=== PATIENT | female | born 1955 | race Caucasian/White ===

== ENCOUNTER 2018-10-12 11:17 | Observation (INO) ==
[2018-10-12] MEDS ORDERED: Acetaminophen 500 MG Tablet PO PRN (15:42)
[2018-10-12] MEDS ORDERED: Morphine Inj 4 MG/ML Vial IV.PUSH PRN (15:42)
[2018-10-12] MEDS ORDERED: Temazepam 15 MG Capsule PO PRN (15:42)
[2018-10-12] MEDS ORDERED: amLODIPine 5 MG Tablet PO SCH (15:45)
[2018-10-12 20:27] LABS: Creatine Kinase 84 U/L (26-192)
[2018-10-13] MEDS ORDERED: Atropine Inj 1 MG/ML Vial IV.PUSH PRN (02:39)
[2018-10-13] MEDS: Aspirin 325 MG Tablet PO SCH ×2 (07:51→10:19)
[2018-10-13 08:12] VITALS: BP 121/58; RESP 12; TEMP 97.3; O2SAT 96
--- NOTE | 2018-10-13 08:22 | P.HP ---
History of Present Illness Primary Care Physician: Alexandro Chauhan MD Chief Complaint: Chest pain History of Present Illness: This is a 63-year-old female patient with a known medical history of dyslipidemia who presented to the ED with complaints of chest pain. Patient states that the chest pain started 2 days ago, initially occurred at rest was characteristically pressure-like in nature, occurred in her mid chest and radiated to her left shoulder, was rated a 7 out of 10 at its worst on pain scale lasting roughly 3-5 minutes is intermittent in nature and goes away on its own without any known aggravating or alleviating factors. Patient denies any associated sweating, nausea, vomiting or shortness of breath. Patient states she has never had this type of pain before. Denies prior stress test. Denies any history of diabetes or hypertension. Does states she has high cholesterol although does not take anything for this secondary to muscle aches with statin. Follows closely with PCP. Does take an aspirin a day. Does have a strong family history of CAD. Denies any smoking history. - Diagnosis (1) Chest pain Review of Systems All other systems reviewed negative except as stated in HPI PMFSH - History History Provided By: Patient - Medical History Medical History: Medical History (Last Reviewed 10/13/18 @ 08:20 by Diana Jefferson) H/O: hysterectomy High cholesterol - Surgical History Surgical History: Surgical History (Last Updated 10/13/18 @ 08:35 by Diana Jefferson) History of cholecystectomy History of appendectomy - Family History Family History: Family History (Last Updated 10/13/18 @ 08:20 by Diana Jefferson) Other Cardiovascular disease - Social History I have reviewed the patient's Social History: Yes - Tobacco History Second Hand Smoke Exposure: No Smoking Status: Never smoker - Alcohol History How Often Do You Have a Drink Containing Alcohol: Never - Substance Use History Substance History: No History of Abuse Medications and Allergies Active Medications: Active Medications Acetaminophen (Tylenol) 500 mg PO Q4H PRN PRN Reason: HEADACHE Hydrocodone Bitart/Acetaminophen (Dudley 7.5/325) 1 tab PO Q4H PRN PRN Reason: PAIN SCALE 1 TO 7 Aspirin (Aspirin) 325 mg PO DAILY VINCENZO Last Admin: 10/13/18 07:51 Dose: 325 mg Atropine Sulfate (Atropine Inj) 0.5 mg IV.PUSH Q5M PRN PRN Reason: HR <35 or symp. bradycardia Enalaprilat (Vasotec Inj) 1.25 mg IV.PUSH Q6H PRN PRN Reason: SBP>160, DBP>90 Morphine Sulfate (Morphine Inj) 2 mg IV.PUSH Q4H PRN PRN Reason: PAIN SCALE 8 TO 10 Nitroglycerin (Nitrostat Sl) 0.4 mg SL Q5M PRN PRN Reason: CHEST PAIN Ondansetron HCl (Zofran Inj) 4 mg IV.PUSH Q6H PRN PRN Reason: NAUSEA Sodium Chloride (Ns Flush) 2 ml IV.FLUSH BID VINCENZO Last Admin: 10/13/18 07:51 Dose: 2 ml Sodium Chloride (Ns Flush) 2 ml IV.FLUSH PRN PRN PRN Reason: FLUSH AFTER USING IV ACCESS Allergies Allergy/AdvReac Type Severity Reaction Status Date / Time No Known Allergies Allergy Verified 10/12/18 11:29 Home Medications Medication Instructions Recorded Confirmed Type aspirin 81 mg PO DAILY 10/12/18 10/12/18 History Exam Vital signs: Vital Signs 10/12/18 18:59 10/12/18 20:00 10/13/18 00:00 Temperature 97.2 F L 97.0 F L Pulse Rate 52 L 51 L 47 L Respiratory Rate 18 18 Blood Pressure 103/55 L 116/55 L Pulse Oximetry 96 96 10/13/18 04:00 10/13/18 08:00 Temperature 95.5 F L 97.3 F L Pulse Rate 52 L 54 L Respiratory Rate 18 12 Blood Pressure 118/67 121/58 L Pulse Oximetry 95 96 Intake & Output 10/12/18 10/13/18 10/13/18 18:59 06:59 18:59 Intake Total 0 / 0 Output Total 300 / 300 Balance -300 / -300 Weight 95.1 kg 96.6 kg Intake: Oral 0 / 0 Output: Urine 300 / 300 Other: Date of Last Bowel Movement 10/12/18 10/12/18 10/12/18 Weight On Admission 95.1 kg Narrative: GENERAL: Well-developed, well-nourished patient in [facility]. SKIN: Warm and dry. No rash. HEAD: Normocephalic. Atraumatic. EYES: Pupils equal and round. No scleral icterus. No injection or drainage. ENT: No nasal bleeding or discharge. Mucous membranes pink and moist. NECK: Supple. Trachea midline. CARDIOVASCULAR: Regular rate and rhythm. S1, S2 noted. No murmur appreciated. No chest pain to palpation. RESPIRATORY: No accessory muscle use. Clear to auscultation. Breath sounds equal bilaterally. GASTROINTESTINAL: Abdomen soft, non-tender, nondistended. Normoactive bowel sounds x4. MUSCULOSKELETAL: No obvious deformities. Extremities without clubbing, cyanosis , or edema. NEUROLOGICAL: Awake and alert. No obvious cranial nerve deficits. Motor grossly within normal limits. 5/5 muscle strength in bilateral upper and lower extremities. Normal speech. PSYCHIATRIC: Appropriate mood and affect; insight and judgment normal. Results - Labs Labs: Laboratory Results - last 24 hr 10/12/18 19:50 Total Creatine Kinase 84 Troponin I Less than 0.02 L Caprini VTE Risk Assessment Caprini VTE Risk Assessment: Moderate/High Risk (score >= 2) Caprini Risk Assessment Model: Point Value = 1 Point Value = 2 Point Value = 3 Point Value = 5 Age 41-60 Minor surgery BMI > 25 kg/m2 Swollen legs Varicose veins or History of unexplained or recurrent spontaneous Oral contraceptives or hormone replacement Sepsis (< 1 month) Serious lung disease, including pneumonia (< 1 month) Abnormal pulmonary function Acute myocardial infarction Congestive heart failure (< 1 month) History of inflammatory bowel disease Medical patient at bed rest Age 61-74 Arthroscopic surgery Major open surgery (> 45 min) Laparoscopic surgery (> 45 min) Malignancy Confined to bed (> 72 hours) Immobilizing plaster cast Central venous access Age >= 75 History of VTE Family history of VTE Factor V Leiden Prothrombin [id number] Lupus anticoagulant Anticardiolipin antibodies Elevated serum homocysteine Heparin-induced thrombocytopenia Other congenital or acquired thrombophilia Stroke (< 1 month) Elective arthroplasty Hip, pelvis, or leg fracture Acute spinal cord injury (< 1 month) Prophylaxis Regimen: Total Risk Factor Score Risk Level Prophylaxis Regimen 0-1 Low Early ambulation 2 Moderate Order ONE of the following: *Sequential Compression Device (SCD) *Heparin 5000 units SQ BID 3-4 Higher Order ONE of the following medications: *Heparin 5000 units SQ TID *Enoxaparin/Lovenox 40 mg SQ daily (WT < 150 kg, CrCl > 30 mL/min) *Enoxaparin/Lovenox 30 mg SQ daily (WT < 150 kg, CrCl > 10-29 mL/min) *Enoxaparin/Lovenox 30 mg SQ BID (WT < 150 kg, CrCl > 30 mL/min) AND/OR *Sequential Compression Device (SCD) 5 or more Highest Order ONE of the following medications: *Heparin 5000 units SQ TID (Preferred with Epidurals) *Enoxaparin/Lovenox 40 mg SQ daily (WT < 150 kg, CrCl > 30 mL/min) *Enoxaparin/Lovenox 30 mg SQ daily (WT < 150 kg, CrCl > 10-29 mL/min) *Enoxaparin/Lovenox 30 mg SQ BID (WT < 150 kg, CrCl > 30 mL/min) AND *Sequential Compression Device (SCD) Assessment and Plan - Assessment (1) Chest pain Code(s): R07.9 - Chest pain, unspecified Status: Acute - Plan This is a 63-year-old female patient with: Chest pain, atypical -Patient has been admitted to chest pain center for observation. -Serial EKGs and serial troponins in order for ruling out ACS purposes. Troponin trend flat. -EKG reviewed showing sinus bradycardia, no ST changes indicating ischemia. -Chest x-ray reviewed showing no acute cardiopulmonary disease. -D-dimer was mildly elevated in ER, CTA was done which was reviewed and negative for any PE, lungs are clear. -BNP negative. CBC and BMP reviewed, essentially unremarkable. -Patient did present with elevated blood pressures with systolic in the 200s. Was given clonidine BP is now controlled, patient does not have a history of hypertension. Does take an aspirin a day. This has been continued. -Continued on cardiac telemetry, monitor for any arrhythmias. -Chest pain has resolved. -Patient will undergo a cardiac Lexiscan to further rule out any ischemia. -Further hospitalization and treatment plan will depend on nuclear imaging results. -Patient stable at this time and agreeable to plan. Elevated BP -Systolic 200's on presentation, now controlled. -Was given Clonidine in ED. Will continue to monitor trends. -Does not need antihypertensive at this time. Dyslipidemia -Does not take anything for thia at home, has tried statins but has had muscle spasms in the past. PCP managing. DVT Prophylaxis: SCDs/TEDs. Ambulation.
[2018-10-13] MEDS ORDERED: Regadenoson Inj 0.4 MG/5 ML Syringe IV.PUSH ONE (11:23)
--- NOTE | 2018-10-13 12:39 | NM ---
EXAM DATE: 10/13/2018 12:34 PM EST AGE/SEX: 63 years / Female INDICATIONS:Angina. . Mid-chest pain radiating to the left shoulder. CLINICAL DATA: This is the patient's initial encounter. Patient reports that signs and symptoms have been present for 2 days and indicates a pain score of 7/10. MEDICAL/SURGICAL HISTORY: Hypercholesterolemia. Hysterectomy. Appendectomy. Cholecystectomy. COMPARISON: No prior exams available for comparison. DOSE: 8.7 mCi Tc 99m Myoview at rest 27.3 mCi [id number] at stress 0.4 mg Lexiscan STRESS SYMPTOMS: Chest pain and dyspnea. EJECTION FRACTION: 68 % TECHNIQUE: The patient underwent pharmacologic stress with infusion of prescribed dose. Continuous ECG tracing was monitored during stress. Gated SPECT imaging was performed after stress and conventi onal SPECT imaging was performed at rest. The examination was performed on a SPECT/CT scanner, both attenuation and non-corrected datasets were reviewed. FINDINGS: Distribution: The maximum perfused segment at stress is in the anterolateral wall. Perfusion Study: The pattern of perfusion at stress is within normal limits. Gated Study: There are intact wall motion and wall thickening without hypokinetic or dyskinetic segm ents. The ejection fraction is calculated at 68%. RISK CATEGORY: Low (<1% Annual Motality Rate) CONCLUSION: 1. No reversible perfusion defect to indicate stress-induced myocardial ischemia identified. Electronically signed by: Chuckie Lux MD 10/13/2018 12:38 PM EST
[2018-10-13 13:00] VITALS: PULSE 56
--- NOTE | 2018-10-13 16:45 | TR ---
Date Performed: 10/13/2018 Time Performed: 11:49:53 DOCTOR: Kristin Hannon DRUG LIST: CLINICAL HISTORY: REASON FOR TEST: Chest pain REASON FOR ENDING: OBSERVATION: CONCLUSION: Lexiscan stress test was performed under standard four minute protocol. Radionuclid e was injected one minute prior to ending the test. No electrocardiographic abormalities were present to suggest ischemia. Nuclear imaging and interpretation are pending. COMMENTS:
--- NOTE | 2018-10-13 16:55 | ECG ---
Date Performed: 10/12/2018 Time Performed: 19:49:42 PTAGE: 63 years EKG: SINUS BRADYCARDIA LOW QRS VOLTAGE IN PRECORDIAL LEADS BORDERLINE ECG Since PREVIOUS TRACING , no significant change noted DOCTOR: Kristin Hannon Interpretating Date/Time 10/13/2018 16:54:55
== END 2018-10-13 14:21 | disposition home or self-care (01) ==
LOC: PH3 18:01 → PHEDDLT 18:01
PROVIDERS: ADMIT Internal Medicine; ATTEND Internal Medicine